=== PATIENT | female | born 1990 | race Caucasian/White ===

== ENCOUNTER 2016-04-30 14:49 | Emergency (ER) | payer OTHER ==
[~2016-04-30] VITALS: Ht 165.1 cm; Wt 65.3 kg
[~2016-04-30 14:49] MED LIST: ANIMAL CHEWS1 EACH PO; BACTRIM,SEPT1 TABLET PO; CIPRO500 MG PO; CLEOCIN300 MG PO; CLINDAMYCIN HC300 MG PO; DEPO-PROVER150 MG/ML IM; DIFLUCAN150 MG PO; DOXYCYCLINE HY100 M3 PO; HYOSCYAMINE0.375 MG PO; MACROBID100 MG PO; MIRALAX255 GM PO; MIRTAZAPINE15 MG PO; Macrobid PO; NAPROSYN500 MG PO; ONDANSETRON ODT4 MG PO; PERCOCET 5/31 TABLET PO; PHENADOZ25 MG PR; Phenergan PO; REGLAN10 MG PO; SUDAFED 12-HOU120 MG PO; TESSALON PERLE100 MG PO; TYLENOL EXTRA500 MG PO; VIBRAMYCIN100 MG PO; ZOFRAN ODT4 MG PO; ZOFRAN4 MG PO; ZOLOFT50 MG PO
[2016-04-30] MEDS ORDERED: KEFLEX500 MG PO (16:28)
[2016-04-30 16:37] VITALS: BP 143/82
== END 2016-04-30 16:37 | disposition home or self-care (01) ==
LOC: EME 14:49
DX: K08.89 Other specified disorders of teeth and supporting structures (principal); R30.0 Dysuria; F17.290 Nicotine dependence, other tobacco product, uncomplicated
CPT/HCPCS: 99281; 99283

== ENCOUNTER 2016-06-28 17:30 | Emergency (ER) | payer OTHER ==
[~2016-06-28] VITALS: Ht 162.6 cm; Wt 63.4 kg
[~2016-06-28 17:30] MED LIST changes: +KEFLEX500 MG PO
[2016-06-28 18:12] LABS: ADD MIUA? NO; BILIRUBIN NEGATIVE; BLOOD NEGATIVE; COLOR YELLOW ((YELLOW)); GLUCOSE (STRIP) NEGATIVE; KETONES NEGATIVE; LEUKOCYTES NEGATIVE; NITRITE NEGATIVE; PROTEIN (STRIP) NEGATIVE; SPECIFIC GRAVITY 1.015 (1.000-1.030); UROBILINOGEN 0.2 MG/DL (0.2-1.0)
[2016-06-28 18:38] LABS: HEMATOCRIT 38.1 % (36.0-46.0); MCHC 33.1 G/DL (30.0-36.0); MCV 93.6 FL (83-99); MEAN PLAT.VOLUME 13.7 uM^3 (9.5-12.4); PLATELET COUNT 129 K/uL (156-360); RBC DIS.WIDTH-CV 12.2 % (11.8-14.6); RBC DIS.WIDTH-SD 41.5 % (39-53); RED BLOOD COUNT 4.07 M/uL (3.80-5.20); WHITE BLOOD COUNT 7.2 K/uL (4.1-10.2)
[2016-06-28 18:52] LABS: CHLORIDE 104 mEq/L (99-109); POTASSIUM 4.4 mEq/L (3.7-5.4); SODIUM 140 mEq/L (136-147)
[2016-06-28 18:54] LABS: GLUCOSE 98 mg/dL (70-99)
[2016-06-28 18:56] LABS: ANION GAP 9 MEQ/L (2-14); TOTAL BILIRUBIN 0.3 mg/dL (0.0-1.0)
[2016-06-28 18:58] LABS: ALKALINE PHOSPHATASE 52 IU/L (3-129); GFR ESTIMATE (CALCULATED) > 59 mL/min/
[2016-06-28 18:59] LABS: UREA NITROGEN (BUN) 10 mg/dL (9-23)
[2016-06-28 19:01] LABS: LIPASE 24 U/L (1.0-51.0)
[2016-06-28] MEDS ORDERED: NAPROSYN500 MG PO (19:06)
[2016-06-28 19:21] VITALS: BP 131/83
== END 2016-06-28 19:30 | disposition home or self-care (01) ==
LOC: EME 17:30
PROVIDERS: Physician Assistant
DX: R10.30 Lower abdominal pain, unspecified (principal); E11.9 Type 2 diabetes mellitus without complications; Z87.440 Personal history of urinary (tract) infections; Z88.0 Allergy status to penicillin; Z88.6 Allergy status to analgesic agent; F17.200 Nicotine dependence, unspecified, uncomplicated
CPT/HCPCS: 80053; 81003; 83690; 85027; 99281; 99284

== ENCOUNTER 2016-08-08 13:15 | Emergency (ER) | payer OTHER ==
[~2016-08-08] VITALS: Ht 165.1 cm; Wt 56.1 kg
[2016-08-08 13:24] VITALS: BP 144/81
[2016-08-08] MEDS ORDERED: MOBIC7.5 MG PO (13:47)
== END 2016-08-08 14:24 | disposition home or self-care (01) ==
LOC: EME 13:15
DX: M75.52 Bursitis of left shoulder (principal); F17.200 Nicotine dependence, unspecified, uncomplicated
CPT/HCPCS: 99281; 99283

== ENCOUNTER 2016-08-13 13:49 | Emergency (ER) | payer OTHER ==
[~2016-08-13] VITALS: Ht 165.1 cm; Wt 61.1 kg
[~2016-08-13 13:49] MED LIST changes: +MOBIC7.5 MG PO
[2016-08-13 14:56] LABS: HEMATOCRIT 39.7 % (36.0-46.0); MCH 29.5 PG (29.0-34.0); MCHC 32.7 G/DL (30.0-36.0); MEAN PLAT.VOLUME 13.4 uM^3 (9.5-12.4); PLATELET COUNT 124 K/uL (156-360); RBC DIS.WIDTH-CV 12.9 % (11.8-14.6); RBC DIS.WIDTH-SD 41.8 % (39-53); RED BLOOD COUNT 4.41 M/uL (3.80-5.20); WHITE BLOOD COUNT 9.6 K/uL (4.1-10.2)
[2016-08-13 15:06] LABS: CHLORIDE 105 mEq/L (99-109); POTASSIUM 4.1 mEq/L (3.7-5.4); SODIUM 140 mEq/L (136-147)
[2016-08-13 15:08] LABS: GLUCOSE 115 mg/dL (70-99)
[2016-08-13 15:10] LABS: ANION GAP 10 MEQ/L (2-14)
[2016-08-13 15:12] LABS: GFR ESTIMATE (CALCULATED) > 59 mL/min/
[2016-08-13 15:13] LABS: UREA NITROGEN (BUN) 17 mg/dL (9-23)
[2016-08-13 15:26] LABS: QUANTITATIVE HCG < 4.0 MIU/ML
[2016-08-13 15:44] LABS: ADD MIUA? YES; BILIRUBIN NEGATIVE; BLOOD MODERATE; COLOR YELLOW ((YELLOW)); GLUCOSE (STRIP) NEGATIVE; KETONES 20; LEUKOCYTES NEGATIVE; NITRITE NEGATIVE; PROTEIN (STRIP) 30; SPECIFIC GRAVITY 1.025 (1.000-1.030); UROBILINOGEN 0.2 MG/DL (0.2-1.0)
[2016-08-13 15:57] LABS: BACTERIA NONE SEEN /HPF; EPITHELIAL CELLS 2+ /HPF; MUCUS TRACE /LPF; RED BLOOD CELLS 0-5 /HPF (0-5); UCUL ADDED? NO; WHITE BLOOD CELLS 0-5 /HPF (0-5)
[2016-08-13 16:44] LABS: TOTAL BILIRUBIN 0.9 mg/dL (0.0-1.0)
[2016-08-13 16:45] LABS: ALKALINE PHOSPHATASE 59 IU/L (3-129)
[2016-08-13 16:48] LABS: DIRECT BILIRUBIN 0.3 mg/dL (0.0-0.3)
[2016-08-13 16:49] LABS: LIPASE 10 U/L (1.0-51.0)
[2016-08-13] MEDS ORDERED: MIRALAX17 GM PO (17:12)
[2016-08-13] MEDS ORDERED: ZOFRAN4 MG PO (17:12)
[2016-08-13 17:29] VITALS: BP 107/58
== END 2016-08-13 17:32 | disposition home or self-care (01) ==
LOC: EME 13:49
DX: K59.00 Constipation, unspecified (principal); R11.10 Vomiting, unspecified; F17.200 Nicotine dependence, unspecified, uncomplicated; Z88.0 Allergy status to penicillin; Z88.6 Allergy status to analgesic agent
CPT/HCPCS: 74000; 80048; 80076; 81003; 83690; 84702; 85027; 99281; 99283

== ENCOUNTER 2016-11-19 08:11 | Day surgery (SDC) | payer OTHER ==
[~2016-11-19] VITALS: Ht 165.1 cm; Wt 62.6 kg
[~2016-11-19 08:11] MED LIST changes: +MIRALAX17 GM PO
[2016-11-19 09:20] VITALS: BP 123/59
[2016-11-19] MEDS ORDERED: MOTRIN800 MG PO (10:56)
[2016-11-19] MEDS ORDERED: DOXYCYCLINE MO100 M1 PO (10:56)
[2016-11-19 12:39] VITALS: BP 112/57
[2016-11-19 13:43] VITALS: BP 107/63
== END 2016-11-19 13:51 | disposition home or self-care (01) ==
LOC: SDC 08:11
PROC: 10D17ZZ Extraction of Products of Conception, Retained, Via Natural or Artificial Opening (ICD-10-PCS; principal; 2016-11-19)
DX: O02.1 Missed abortion (principal); Z3A.12 12 weeks gestation of pregnancy; Z88.0 Allergy status to penicillin
CPT/HCPCS: 86850; 86900; 86901; 88305; J0330; J1100; J1170; J1885; J2250; J2405; J2590; J3010

== ENCOUNTER 2017-01-09 15:08 | Emergency (ER) | payer OTHER ==
[~2017-01-09] VITALS: Ht 165.1 cm; Wt 60.4 kg
[~2017-01-09 15:08] MED LIST changes: +DOXYCYCLINE MO100 M1 PO; +MOTRIN800 MG PO
[2017-01-09 15:27] VITALS: BP 113/67
== END 2017-01-09 17:31 | disposition left against medical advice (07) ==
LOC: EME 15:08
DX: M79.602 Pain in left arm (principal); R20.0 Anesthesia of skin; Z53.21 Procedure and treatment not carried out due to patient leaving prior to being seen by health care provider